=== PATIENT | male | born 1965 | race Two or more races ===

== ENCOUNTER 2018-07-18 19:48 | Inpatient (IN) | payer SELFPAY ==
[~2018-07-18] VITALS: Ht 188 cm; Wt 92.5 kg
[2018-07-18] MEDS ORDERED: SODIUM CHLORIDE 0.9% 500 ML IV ONE (20:48)
[2018-07-18] MEDS ORDERED: ADENOSINE 6 MG/2 ML INJ IV ONE ×5 (21:00→21:15)
[2018-07-18 21:12] LABS: Basophils # (auto) 0.1 uL; Basophils % (auto) 1.5 % (0.0-2.0); Eosinophils # (auto) 0.5 uL; Eosinophils % (auto) 6.2 % (0.0-7.0); Hematocrit 46.1 % (41.0-53.0); Hemoglobin 15.8 g/dL (13.5-17.5); Lymphocytes # (auto) 1.7 uL; Lymphocytes % (auto) 19.9 % (10.0-50.0); Mean Corpuscular Hemoglobin 30.8 pg (28.0-32.0); Mean Corpuscular Hgb Conc. 34.3 g/dL (32.0-36.0); Mean Corpuscular Volume 89.8 fL (80.0-100.0); Monocytes # (auto) 0.6 uL; Monocytes % (auto) 6.8 % (0.0-12.0); Neutrophils # (auto) 5.6 uL; Neutrophils % (auto) 65.6 % (37.0-80.0); Nucleated Red Blood Cells % 0.1 %; Platelet Count (auto) 318 10^3/uL (140-450); Red Blood Cells 5.14 10^6/uL (4.5-5.90); Red Cell Distribution Width 13.8 % (11.8-14.3); White Blood Cell 8.6 10^3/uL (4.4-10.8)
[2018-07-18] MEDS ORDERED: DILTIAZEM HCL 25 MG/5 ML VIAL IV ONE ×2 (21:15→22:00)
[2018-07-18 21:26] LABS: Alanine Aminotransferase 30 U/L (16-61); Albumin 3.5 g/dL (3.4-5.0); Anion Gap 8 (5-15); Aspartate Aminotransferase 32 U/L (15-37); Blood Urea Nitrogen 24 mg/dL (7-18); Calcium 8.6 mg/dL (8.5-10.1); Carbon Dioxide 27 mmol/L (21-32); Chloride 106 mmol/L (98-107); Glucose 100 mg/dL (74-106); Magnesium 2.7 mg/dL (1.6-2.6); Potassium 3.6 mmol/L (3.5-5.1); Sodium 141 mmol/L (136-145)
[2018-07-18 21:44] LABS: Alkaline Phosphatase 104 U/L (45-117); BUN/Creatinine Ratio 13.9; Bilirubin, Total 0.6 mg/dL (0.2-1.0); GFR African American 54 mL/min; GFR Non-African American 45 mL/min; Total Protein 8.1 g/dL (6.4-8.2)
[2018-07-19] MEDS ORDERED: HYDROcodone-ACET 5/325MG TAB PO PRN (00:45)
[2018-07-19] MEDS ORDERED: NITROGLYCERIN 0.4 MG SL TAB SL PRN (00:45)
[2018-07-19] MEDS ORDERED: ACETAMINOPHEN 325 MG TAB PO PRN (00:45)
[2018-07-19] MEDS ORDERED: MORPHINE SULF INJ 2 MG/ML SYRINGE 1ML IV ONE (00:45)
[2018-07-19] MEDS ORDERED: TEMAZEPAM 15 MG CAP PO PRN (00:45)
[2018-07-19] MEDS ORDERED: KETOROLAC TROMETH 30 MG/ML 1ML VIAL IV ONE (00:45)
[2018-07-19] MEDS ORDERED: ONDANSETRON HCL 4 MG/2 ML VIAL IV PRN (00:45)
[2018-07-19] MEDS ORDERED: MORPHINE SULF INJ 2 MG/ML SYRINGE 1ML IV PRN (00:45)
[2018-07-19] MEDS ORDERED: DIGOXIN (250MCG/ML) 2 ML AMPULE IV ONE ×2 (02:15→02:45)
[2018-07-19] MEDS ORDERED: METOPROLOL TARTRATE 1MG/1ML-5ML VIAL IV ONE (02:15)
[2018-07-19] MEDS ORDERED: AMIODARONE HCL 150 MG in D5W 5% 100 ML IV ONE (05:30)
[2018-07-19] MEDS ORDERED: AMIODARONE HCL 900 MG IV ONE (05:39)
[2018-07-19] MEDS ORDERED: AMIODARONE HCL 900 MG in DEXTROSE 500 ML IV SCH ×2 (06:00→12:00)
[2018-07-19] MEDS: ASPirin 81 mg TAB PO SCH (06:05)
[2018-07-19] MEDS: LEVOTHYROXINE SODIUM 25 MCG TAB PO SCH (06:05)
[2018-07-19 08:30] VITALS: BP 113/70
--- NOTE | 2018-07-19 08:30 | NUR ---
Admit to [facility] TAN admitted to [facility] via gurney on compliance monitor, and portable 02. Patient transferred to bed, connected to unit monitoring and oxygen, and weighed by bed scale. Patient oriented to Latonya Boo, primary RN, unit, room, bed, and unit policies regarding patient care and visiting hours. All questions and concerns addressed, patient verbalized understanding.
--- NOTE | 2018-07-19 09:20 | NUR ---
MIGRATORY GAME BIRD BIOLOGIST AT BEDSIDE.
[2018-07-19] MEDS ORDERED: ASPirin 81 mg TAB PO SCH (10:00)
[2018-07-19] MEDS: FAMOTIDINE 20 MG TAB PO SCH ×2 (10:14→22:09)
[2018-07-19] MEDS: METOPROLOL TARTRATE 25 MG TAB PO SCH ×2 (10:15→22:10)
[2018-07-19 12:00] VITALS: BP 114/70
--- NOTE | 2018-07-19 12:10 | NUR ---
DR BARAKAT AT BEDSIDE TO ASSESS PATIENT AND DISCUSS PLAN OF CARE. PER MD PATIENT CAN BE DISCHARGED TODAY FROM HIS STANDPOINT IF OK WITH PRIMARY MD.REFER TO MD NOTES FOR MEDICATION RECOMMENDATIONS.
--- NOTE | 2018-07-19 12:25 | NUR ---
DR BROUSSARD AT BEDSIDE TO ASSESS PATIENT AND DISCUSS PLAN OF CARE. PER MD STOP AMIO DRIP AND START ON PO 200MG BID. PATIENT CAN GO TO TELEMETRY FLOOR. PER MD RECOMMENDS PATIENT TO STAY UNTIL TOMORROW TO BE DISCHARGED FOR MONITORING.
[2018-07-19 16:00] VITALS: BP 124/67
[2018-07-19 20:01] VITALS: BP 112/74
[2018-07-19] MEDS: AMIODARONE HCL 200 MG TAB PO SCH (22:10)
--- NOTE | 2018-07-19 22:20 | NUR ---
Pt resting comfortably but states body aches. No S/S of distress. Informed of Tele status and move when bed becomes available. Will continue to monitor.
--- NOTE | 2018-07-19 22:34 | NUR ---
Report given to Steven ABBASI. Pt to go to room 223B on Tele monitor. Waiting for room to be set up and then pt to be transported via wheelchair. Stable at this time.
--- NOTE | 2018-07-19 23:01 | NUR ---
Pt stable, transferred out via wheelchair. All belongings with pt. Will call to notify of transfer to room 223B. Care endorsed.
--- NOTE | 2018-07-19 23:05 | NUR ---
[facility] pt transferred to floor [facility] transfered to Room 223B via [facility] on printer helper. All patient medications and personal belongings transfered with patient to receiving floor. Patient care transfered to AYLEEN Armando.
--- NOTE | 2018-07-20 03:25 | NUR ---
Rounds Patient in bed asleep with breathing even and unlabored. No signs of distress/pain noted. Call light within reach. Will continue to monitor.
[2018-07-20 05:31] VITALS: BP 113/68
[2018-07-20 06:08] LABS: Basophils # (auto) 0 uL; Basophils % (auto) 0.5 % (0.0-2.0); Eosinophils # (auto) 0.1 uL; Eosinophils % (auto) 1.9 % (0.0-7.0); Hematocrit 36.1 % (41.0-53.0); Hemoglobin 12.7 g/dL (13.5-17.5); Lymphocytes % (auto) 31.2 % (10.0-50.0); Mean Corpuscular Hemoglobin 31.1 pg (28.0-32.0); Mean Corpuscular Hgb Conc. 35.1 g/dL (32.0-36.0); Mean Corpuscular Volume 88.7 fL (80.0-100.0); Monocytes # (auto) 0.4 uL; Monocytes % (auto) 6.7 % (0.0-12.0); Neutrophils # (auto) 3.9 uL; Neutrophils % (auto) 59.7 % (37.0-80.0); Platelet Count (auto) 226 10^3/uL (140-450); Red Blood Cells 4.07 10^6/uL (4.5-5.90); Red Cell Distribution Width 13.5 % (11.8-14.3); White Blood Cell 6.5 10^3/uL (4.4-10.8)
[2018-07-20] MEDS: LEVOTHYROXINE SODIUM 25 MCG TAB PO SCH (06:20)
[2018-07-20 06:42] LABS: BUN/Creatinine Ratio 15.1; Calcium 8.2 mg/dL (8.5-10.1); Potassium 3.8 mmol/L (3.5-5.1)
--- NOTE | 2018-07-20 07:20 | NUR ---
Endorsed care to day shift RN.
--- NOTE | 2018-07-20 07:40 | NUR ---
Opening Shift Note Assumed care of patient, awake and alert. No S/S of distress/SOB or pain. Instructed on POC and to call for assist PRN. Bed at lowest position and call light within reach. Will continue to monitor for changes Q1hr and PRN.
[2018-07-20 09:35] VITALS: BP 119/72
[2018-07-20] MEDS: METOPROLOL TARTRATE 25 MG TAB PO SCH (10:14)
[2018-07-20] MEDS: AMIODARONE HCL 200 MG TAB PO SCH (10:14)
[2018-07-20] MEDS: FAMOTIDINE 20 MG TAB PO SCH (10:15)
[2018-07-20] MEDS: ASPirin 81 mg TAB PO SCH (10:15)
[2018-07-20 11:47] VITALS: BP 119/72
[2018-07-20 13:12] VITALS: BP 121/68
--- NOTE | 2018-07-20 13:40 | NUR ---
Discharge instructions given as ordered. Encourage to follow up with PMD as instructed. All questions and concerns addressed. Patient verbalized understanding. IV removed with catheter intact, pressure dressing applied. Telemetry unit returned to ICU. Patient taken to vehicle via wheelchair with all personal belongings, accompanied by staff and family member. No distress noted at time of departure.
== END 2018-07-20 13:48 | disposition home or self-care (01) | DRG 309 ==
LOC: ER 19:51 → TELE 07-19 00:32 → DOU IN ICU 07-19 08:33 → TELE-CENTR 07-19 22:55
PROVIDERS: ADMIT Nurse Practitioner; ATTEND Family Medicine
DX: I47.1 Supraventricular tachycardia (principal); I13.0 Hypertensive heart and chronic kidney disease with heart failure and stage 1 through stage 4 chronic kidney disease, or unspecified chronic kidney disease; E03.9 Hypothyroidism, unspecified; I48.92 Unspecified atrial flutter; F17.210 Nicotine dependence, cigarettes, uncomplicated; E11.22 Type 2 diabetes mellitus with diabetic chronic kidney disease; I48.91 Unspecified atrial fibrillation; I50.9 Heart failure, unspecified; N28.9 Disorder of kidney and ureter, unspecified; Z79.899 Other long term (current) drug therapy; Z83.3 Family history of diabetes mellitus; Z71.6 Tobacco abuse counseling; Z79.82 Long term (current) use of aspirin
CPT/HCPCS: 36415; 70450; 71045; 80048; 80053; 83735; 84439; 84443; 84484; 85025; 87081; 93306; 94761; 96361; 96365; 96366; 96375; 96376; G0378; J0153; J1885; J7060